=== PATIENT | female | born 1970 | race African-American/Black ===

== ENCOUNTER 2019-01-26 08:49 | Emergency (ER) | payer OTHER ==
[~2019-01-26] VITALS: Ht 165.1 cm; Wt 70.0 kg
[~2019-01-26 08:49] MED LIST: AMLO2.5T45 PO; CARI-166; DICL75TA5 PO; FLUO10TA3; HYDR-3927 PO; LISI1TAB13; SUMA50TA16
[2019-01-26 09:52] LABS: BASOPHILS % 1.3 % (0.0-2.0); EOSINOPHILS % 8.9 % (0.0-5.0); HEMATOCRIT. 26.8 % (36.0-48.0); HEMOGLOBIN. 8.2 g/dL (12.0-16.0); LYMPHOCYTES % 31.9 % (20.0-50.0); MEAN CORPUSCULAR HEMOGLOBIN 18.5 pg (28.0-32.0); MEAN CORPUSCULAR VOLUME 60.4 fL (81.0-99.0); MEAN PLATELET VOLUME 8.6 fl (7.4-10.4); MONOCYTES % 7.6 % (2.0-8.0); NEUTROPHILS % 50.3 % (40.0-76.0); PLATELET 504 x1000/uL (130-400); RED BLOOD CELL COUNT 4.44 mill/uL (4.2-5.4); RED CELL DISTRIBUTION WIDTH 22.6 % (11.6-14.6)
[2019-01-26 10:00] LABS: CHLORIDE 110 mEq/L (98-107)
[2019-01-26 10:25] LABS: PLATELET ESTIMATE INCREASED
[2019-01-26] MEDS ORDERED: ACETAMINOPHEN 325MG TABLET PO NR (10:30)
[2019-01-26] MEDS ORDERED: SODIUM CHLORIDE 0.9% 500 ML IV NR (10:30)
[2019-01-26] MEDS ORDERED: KETOROLAC 15MG/ML VIAL IV NR (10:30)
[2019-01-26 12:11] VITALS: BP 176/70
== END 2019-01-26 12:30 | disposition home or self-care (01) ==
LOC: ER 08:49
DX: J06.9 Acute upper respiratory infection, unspecified (principal); D50.9 Iron deficiency anemia, unspecified
CPT/HCPCS: 36415; 71045; 80053; 83880; 84484; 85025; 87804; 93005; 96365; 96375; 99284; J1885; Z7610

== ENCOUNTER 2020-08-09 12:22 | Inpatient (IN) | payer OTHER ==
[~2020-08-09] VITALS: Ht 165.1 cm; Wt 132.0 kg
[~2020-08-09 12:22] MED LIST changes: -CARI-166; +CARI350T28
[2020-08-09] MEDS ORDERED: MORPHINE SULFATE 4 MG/ML CPJ (NOT FOR IM USE) IV STA (12:42)
[2020-08-09] MEDS ORDERED: ONDANSETRON HCL 4MG/2ML INJ IV ONE (13:15)
[2020-08-09] MEDS ORDERED: ASPIRIN 325MG EC TABLET PO ONE (13:15)
[2020-08-09 13:37] LABS: CHLORIDE 110 mEq/L (98-107)
[2020-08-09 13:38] LABS: EOSINOPHILS % 4.3 % (0.0-5.0); HEMATOCRIT. 34.3 % (36.0-48.0); HEMOGLOBIN. 11.2 g/dL (12.0-16.0); LYMPHOCYTES % 33.3 % (20.0-50.0); MEAN CORPUSCULAR HEMOGLOBIN 22.9 pg (28.0-32.0); MEAN CORPUSCULAR VOLUME 69.9 fL (81.0-99.0); MEAN PLATELET VOLUME 8.3 fl (7.4-10.4); NEUTROPHILS % 54.4 % (40.0-76.0); PLATELET 400 x1000/uL (130-400); RED CELL DISTRIBUTION WIDTH 19.2 % (11.6-14.6)
[2020-08-09 13:58] LABS: PLATELET ESTIMATE NORMAL
[2020-08-09] MEDS ORDERED: HYDRALAZINE HCL 100MG TABLET PO PRN (17:15)
[2020-08-09] MEDS ORDERED: CLONIDINE 0.1MG TABLET PO SCH (18:00)
[2020-08-09 20:00] VITALS: BP 176/90
[2020-08-09 20:12] VITALS: BP 176/90
[2020-08-09] MEDS ORDERED: AMLODIPINE 10MG TABLET PO NR (21:00)
[2020-08-09] MEDS ORDERED: ZOLPIDEM TARTRATE 5MG TABLET PO PRN (21:00)
[2020-08-09] MEDS: METOPROLOL TARTRATE 25MG TABLET PO SCH (21:44)
[2020-08-09] MEDS: CLONIDINE 0.1MG TABLET PO PRN (21:44)
[2020-08-09] MEDS: HYDROCODONE/ACETAMINOPHEN 10/325MG TABLET PO PRN (21:45)
[2020-08-09] MEDS ORDERED: IOHEXOL-300 100 ML BOTTLE ONE (23:15)
[2020-08-09] MEDS ORDERED: IOHEXOL-350 100 ML BOTTLE ONE (23:15)
[2020-08-10] VITALS: BP 110/54
[2020-08-10 04:00] VITALS: BP 105/67
[2020-08-10] MEDS: HYDROCODONE/ACETAMINOPHEN 10/325MG TABLET PO PRN ×3 (05:33→21:08)
[2020-08-10 08:00] VITALS: BP 140/81
[2020-08-10] MEDS ORDERED: ISOSORBIDE MONONITRATE 60MG TABLET SR 24HR PO SCH (09:00)
[2020-08-10] MEDS ORDERED: ONDANSETRON HCL 4MG/2ML INJ IV PRN (09:15)
[2020-08-10] MEDS: METOPROLOL TARTRATE 25MG TABLET PO SCH ×2 (09:21→21:08)
[2020-08-10] MEDS: FLUOXETINE HCL 10 MG CAPSULE PO SCH (09:22)
[2020-08-10] MEDS: ASPIRIN 81MG TABLET PO SCH (09:22)
[2020-08-10] MEDS: AMLODIPINE 10MG TABLET PO SCH (09:22)
[2020-08-10 12:00] VITALS: BP 119/54
[2020-08-10 16:00] VITALS: BP 109/58
[2020-08-10 16:26] LABS: *BARBITURATES SCREEN URINE NEGATIVE (NEGATIVE); *BENZODIAZEPINES SCREEN URINE NEGATIVE (NEGATIVE); *COCAINE SCREEN URINE NEGATIVE (NEGATIVE)
[2020-08-10 16:27] LABS: *AMPHETAMINES SCREEN URINE NEGATIVE (NEGATIVE); CANNABINOID URINE SCREEN NEGATIVE (NEGATIVE); METHADONE URINE SCREEN NEGATIVE (NEGATIVE); OPIATES URINE SCREEN PRESUMTIVE POSITIVE (NEGATIVE); PHENCYCLIDINE URINE SCREEN NEGATIVE (NEGATIVE)
[2020-08-10 20:00] VITALS: BP 145/62
[2020-08-11] VITALS: BP 101/56
[2020-08-11 04:00] VITALS: BP 120/63
[2020-08-11 08:00] VITALS: BP 140/72
[2020-08-11] MEDS: FLUOXETINE HCL 10 MG CAPSULE PO SCH (08:12)
[2020-08-11] MEDS: ASPIRIN 81MG TABLET PO SCH (08:12)
[2020-08-11] MEDS: AMLODIPINE 10MG TABLET PO SCH (08:12)
[2020-08-11] MEDS: HYDROCODONE/ACETAMINOPHEN 10/325MG TABLET PO PRN (08:13)
[2020-08-11] MEDS: METOPROLOL TARTRATE 25MG TABLET PO SCH (08:14)
[2020-08-11] MEDS ORDERED: METO25TA6 PO (11:06)
[2020-08-11] MEDS ORDERED: AMLO10TA80 PO (11:06)
[2020-08-11 12:00] VITALS: BP 162/92
[2020-08-11] MEDS: DILTIAZEM HCL 60MG TABLET PO SCH ×2 (12:00→14:02)
[2020-08-11 13:07] VITALS: BP 145/65
[2020-08-11] MEDS: CLONIDINE 0.1MG TABLET PO PRN (14:02)
== END 2020-08-11 15:15 | disposition home or self-care (01) | DRG 199 ==
LOC: ER 12:22 → 5WST 16:14 → ENRESERV 17:35
PROVIDERS: ADMIT Internal Medicine; ATTEND Internal Medicine
DX: I16.0 Hypertensive urgency (principal); E87.8 Other disorders of electrolyte and fluid balance, not elsewhere classified; E66.01 Morbid (severe) obesity due to excess calories; J44.9 Chronic obstructive pulmonary disease, unspecified; D64.9 Anemia, unspecified; I10 Essential (primary) hypertension; Z68.42 Body mass index [BMI] 45.0-49.9, adult; Z79.899 Other long term (current) drug therapy; Z79.891 Long term (current) use of opiate analgesic
CPT/HCPCS: 36415; 71045; 71275; 80053; 80305; 83880; 84443; 84484; 85025; 93005; 93306; 99285; J2270; J2405; Q9967

== ENCOUNTER 2020-12-18 10:49 | Emergency (ER) | payer MEDICAID, OTHER ==
[~2020-12-18] VITALS: Ht 165.1 cm; Wt 122.0 kg
[~2020-12-18 10:49] MED LIST changes: +AMLO10TA80 PO; -AMLO2.5T45 PO; -LISI1TAB13; +METO25TA6 PO
[2020-12-18] MEDS ORDERED: CLONIDINE 0.2MG TABLET PO ONE (12:15)
[2020-12-18 12:35] LABS: BASOPHILS % 1.2 % (0.0-2.0); EOSINOPHILS % 2.8 % (0.0-5.0); HEMATOCRIT. 38.4 % (36.0-48.0); HEMOGLOBIN. 12.3 g/dL (12.0-16.0); LYMPHOCYTES % 33.3 % (20.0-50.0); MEAN CORPUSCULAR HEMOGLOBIN 24.3 pg (28.0-32.0); MEAN CORPUSCULAR VOLUME 75.7 fL (81.0-99.0); MEAN PLATELET VOLUME 8.1 fl (7.4-10.4); MONOCYTES % 6.1 % (2.0-8.0); NEUTROPHILS % 56.6 % (40.0-76.0); PLATELET 415 x1000/uL (130-400); RED BLOOD CELL COUNT 5.07 mill/uL (4.2-5.4)
[2020-12-18 12:41] LABS: CHLORIDE 109 mEq/L (98-107)
[2020-12-18 13:19] LABS: HCG SCREEN NEGATIVE
[2020-12-18] MEDS ORDERED: CLONIDINE 0.2MG TABLET PO NR (17:06)
[2020-12-18] MEDS ORDERED: ACET325T52 MT (18:37)
[2020-12-18 20:48] VITALS: BP 162/92
== END 2020-12-18 20:50 | disposition home or self-care (01) ==
LOC: ER 10:49
DX: R07.89 Other chest pain (principal); I11.0 Hypertensive heart disease with heart failure; G43.909 Migraine, unspecified, not intractable, without status migrainosus; Z79.899 Other long term (current) drug therapy; I50.9 Heart failure, unspecified
CPT/HCPCS: 36415; 71045; 73560; 80048; 84484; 84703; 85025; 93005; 99285